=== PATIENT | female | born 1980 | race Caucasian/White ===

== ENCOUNTER → 2020-10-04 | Outpatient (CLI) | payer OTHER ==
[~2020-10-04] MED LIST: LISINOPRIL-HCT1 EACH PO; MICROGESTIN1 EAC1 PO; NORCO5 PO
== END ==
LOC: M.LAB 15:54
PROVIDERS: ATTEND Surgery
DX: Z01.812 Encounter for preprocedural laboratory examination (principal); K80.20 Calculus of gallbladder without cholecystitis without obstruction; Z20.822 Contact with and (suspected) exposure to COVID-19

== ENCOUNTER → 2020-10-08 | Day surgery (SDC) | payer OTHER ==
--- NOTE | ~2020-10-08 | OP ---
[facility] [address] [place] [address] OPERATIVE REPORT Name: NINO GRIMM Room: [facility].Carolyn.#: [id number] Admission: 10/08/20 Attend Phys: Rodney Malloy Discharge: Date of : 76 Report #: [id number] THIS REPORT FOR: cc: Socorro Hunter MD, Nora P. MD ~ Rodney Malloy MD DATE OF SERVICE: 10/08/2020 PREOPERATIVE DIAGNOSIS: Symptomatic cholelithiasis. POSTOPERATIVE DIAGNOSIS: Symptomatic cholelithiasis. OPERATION: Laparoscopic cholecystectomy with intraoperative cholangiogram. SURGEON: Rodney Malloy MD ANESTHESIA: General. ESTIMATED BLOOD LOSS: Minimal. SPECIMEN: Gallbladder. DESCRIPTION OF PROCEDURE: After informed consent was obtained, the patient was brought to the operating room and placed supine. SCDs were placed and working, preoperative antibiotics were administered, general anesthesia was induced. The abdomen was prepped and draped in a usual sterile fashion. A 10 mm incision was made below the umbilicus. Fascia was incised and a trocar was placed. Three right upper quadrant 5 mm ports were placed. Gallbladder was grasped at the fundus and retracted cephalad. Infundibulum was grasped and retracted laterally. I dissected out the cystic duct and cystic artery. I dissected out the cystic plate. The cystic duct was clipped and a ductotomy was made. Cholangiogram catheter was inserted. Cholangiogram was performed. This demonstrated filling of the cystic duct, common bile duct, bifurcation of the hepatics, smooth easy flow into the duodenum. This was normal. Gallbladder was then clipped and ligated, leaving 2 clips on the remaining duct and 1 on the remaining artery. Gallbladder was then taken off the liver bed with electrocautery. It was placed into an Endopouch and removed. Fascia was then closed with a wyobaz-sc-nsopf 0 Vicryl. Skin was closed with 4-0 Monocryl. Incisions were sealed with Steri-Strips. COMPLICATIONS: [place] [address] OPERATIVE REPORT Name: NINO GRIMM Room: [facility].#: [id number] Admission: 10/08/20 Attend Phys: Rodney Malloy Discharge: Date of : 76 Report #: [id number] DISPOSITION: The patient was taken to recovery in satisfactory condition. By: [id number] Malloy MD /nt
[2020-10-08 09:26] LABS: HEMATOCRIT 43.9 % (37.0-47.0); HEMOGLOBIN 14.7 gm/dL (12.0-15.0)
[2020-10-08 09:33] LABS: CALCIUM 9.8 mg/dL (8.5-10.1); CREATININE 0.7 mg/dL (0.6-1.3); POTASSIUM 3.6 mmol/L (3.5-5.1)
[2020-10-08 09:37] LABS: ALBUMIN 4.3 g/dL (3.4-5.0); TOTAL BILIRUBIN 1.7 mg/dL (<0.1-1.0); TOTAL PROTEIN 8.4 g/dL (6.4-8.2)
--- NOTE | 2020-10-08 13:44 | EKG ---
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
--- NOTE | 2020-10-12 18:06 | PATH ---
[address] [address] PATHOLOGY RPT PROCEDURE Name: NINO GRIMM Room: [facility].R.#: [id number] Admission: 10/08/20 Date of : 76 Discharge: Report #: [id number] Path Case #: [id number] [facility] Accession Number: [id number] . 01 Material submitted: . gallbladder - GALLBLADDER . 01 Clinical history: . CHOLELITHIASIS . 02 Diagnosis: Gallbladder: - Chronic cholecystitis, cholesterolosis and cholelithiasis. (BE/db; 10/12/2020) LBQ 10/12/2020 1311 Local . 02 Electronically signed: . Jhon Mejia MD, Pathologist NPI- [id number] . 01 Gross description: . The specimen is received in formalin, labeled "Nino Grimm gallbladder". Received is an intact gallbladder measuring 11.8 x 2.7 x 2.7 cm in greatest dimensions displaying a blue-montoya, bile-stained serosal surface. Opening the specimen reveals a velvety, bile-stained mucosa displaying mild, diffuse cholesterolosis, and with a gallbladder wall thickness of 0.1 cm. Calculi are present displaying a dark yellow and multifaceted appearance, and no masses or lesions are noted grossly. Dog Food Shredder Operator sections, to include the proximal margin, are submitted in cassette A1. (CAA; 10/11/2020) QAC/QAC 10/11/2020 1113 Local . 02 Pathologist provided ICD-10: K80.10, K82.4 . 02 CPT . 461621 Specimen Comment: A courtesy copy of this report has been sent to [phone] Specimen Comment: Report sent to Performed at: 01 [facility] [address], [place], [place] [id number] MD Mehul Sweeney MD Phone: [phone] Performed at: [address] [facility] [address] [address] [place], [place] [id number] MD Jhon Mejia MD Phone: [phone]
== END | disposition home or self-care (01) ==
LOC: M.SUR
PROVIDERS: ATTEND Surgery
DX: K80.10 Calculus of gallbladder with chronic cholecystitis without obstruction (principal); R10.11 Right upper quadrant pain; I10 Essential (primary) hypertension; Z79.899 Other long term (current) drug therapy